=== PATIENT | male | born 1960 | race Caucasian/White ===

== ENCOUNTER 2019-01-20 06:48 | Day surgery (SDC) | payer BC ==
[2019-01-17 15:31] VITALS: BMI 25.1
[~2019-01-20 06:48] MED LIST: LACTATED RINGERS 1,000 ML IV SCH
[2019-01-20 07:14] VITALS: TEMP 98.1
[2019-01-20] MEDS ORDERED: PROPOFOL 10 MG/ML 20 ML VIAL IV ONE (07:43)
--- NOTE | 2019-01-20 07:47 | P.GSHP ---
History of Present Illness H&P Date: 01/20/19 Chief Complaint: Screening colonoscopy This is a 58-year-old male who presents today for screening colonoscopy. Patient denies a significant checklist. His last colonoscopy was approximately 10 years ago. Past Medical History Past Medical History: Hyperlipidemia, Hypertension History of Any Multi-Drug Resistant Organisms: None Reported Past Surgical History: No Surgical Hx Reported Additional Past Surgical History / Comment(s): oral surgery, colonoscopy Past Anesthesia/Blood Transfusion Reactions: No Reported Reaction Smoking Status: Former smoker Medications and Allergies Home Medications Medication Instructions Recorded Confirmed Type Aspirin 81 mg PO HS 11/11/17 01/20/19 History Lisinopril [Zestril] 20 mg PO DAILY 11/11/17 01/20/19 History Multivitamins, Thera [Multivitamin 1 tab PO HS 11/11/17 01/20/19 History (formulary)] [place]-3 Fatty Acids/Fish Oil [Fish 1 cap PO HS 11/11/17 01/20/19 History Oil 1,000 mg Softgel] Tadalafil [Cialis] 20 mg PO DIRECTED PRN 11/11/17 01/20/19 History Rosuvastatin [Crestor] 10 mg PO HS 01/17/19 01/20/19 History Allergies Allergy/AdvReac Type Severity Reaction Status Date / Time No Known Allergies Allergy Verified 01/17/19 15:26 Surgical - Exam Vital Signs Temp Pulse Resp BP Pulse Ox 98.1 F 76 20 124/77 98 01/20/19 07:13 01/20/19 07:13 01/20/19 07:13 01/20/19 07:13 01/20/19 07:13 - General well developed, well nourished, no distress - Eyes PERRL - ENT normal pinna - Neck no masses - Respiratory normal expansion - Cardiovascular Rhythm: regular - Abdomen Abdomen: soft, non tender Assessment and Plan Assessment: We'll perform screening colonoscopy.
[2019-01-20 08:39] VITALS: BP 115/76; PULSE 69; RESP 18
--- NOTE | 2019-01-20 08:45 | P.OP ---
Date of Procedure: 01/20/19 Preoperative Diagnosis: Screening colonoscopy Postoperative Diagnosis: Normal colonoscopy Procedure(s) Performed: Colonoscopy Anesthesia: MAC Surgeon: Juan Jose Dorantes Pathology: none sent Condition: stable Disposition: PACU Description of Procedure: PROCEDURE: The patient was placed on the endoscopy table in the lateral position. Digital rectal examination was performed which revealed no abnormalities. The prostate was symmetrical without nodules. Flexible colonoscope was then placed in the patient's anus and passed throughout the entire colon. The ileocecal valve was visualized. The cecum, ascending, transverse, descending and sigmoid colon were normal. The rectum was normal as well. There were no masses, polyps or diverticula noted in the entire colon. SUMMARY OF FINDINGS: Normal colonoscopy.
== END 2019-01-20 08:55 | disposition home or self-care (01) ==
LOC: ORWHC2ENDO 06:48
PROVIDERS: ATTEND Surgery
DX: Z12.11 Encounter for screening for malignant neoplasm of colon (principal); I10 Essential (primary) hypertension; E78.5 Hyperlipidemia, unspecified; Z87.891 Personal history of nicotine dependence; Z79.82 Long term (current) use of aspirin; Z79.899 Other long term (current) drug therapy
CPT/HCPCS: G0121; J2704